=== PATIENT | female | born 1985 | race Caucasian/White ===

== ENCOUNTER 2017-01-10 16:46 | Observation (INO) | payer OTHER ==
[2017-01-10 17:35] LABS: Collection Type CLEAN CATCH
[2017-01-10 17:36] LABS: Bacteria MANY /HPF (NEGATIVE); Bilirubin NEGATIVE (NEGATIVE); Blood 50 Ery/ul (0-5); COMPLETE URINE MICROSCOPIC? YES; Epithelial Cells MANY /HPF (FEW); Glucose NEGATIVE (NEGATIVE); Leukocyte Esterase 2+ (NEGATIVE); Mucus MODERATE /HPF (NEGATIVE); WBC 25-50 /HPF (0-5)
[2017-01-10 17:54] VITALS: PULSE 101
[2017-01-10 17:55] VITALS: BP 118/68
== END 2017-01-10 18:40 | disposition home or self-care (01) ==
LOC: OB 16:46
PROVIDERS: ADMIT Family Medicine; ATTEND Family Medicine
DX: Z34.83 Encounter for supervision of other normal pregnancy, third trimester (principal)
CPT/HCPCS: 80307; 81000; 82962; G0378

== ENCOUNTER 2017-01-12 15:04 | Observation (INO) | payer OTHER ==
[2017-01-12 17:40] LABS: Collection Type CLEAN CATCH
[2017-01-12 17:41] LABS: Bacteria MANY /HPF (NEGATIVE); Bilirubin NEGATIVE (NEGATIVE); Blood 250 Ery/ul (0-5); COMPLETE URINE MICROSCOPIC? YES; Epithelial Cells MANY /HPF (FEW); Glucose NEGATIVE (NEGATIVE); Leukocyte Esterase 2+ (NEGATIVE); Mucus MANY /HPF (NEGATIVE); WBC 25-50 /HPF (0-5)
[2017-01-12 17:44] LABS: BASOPHIL % 0.1 % (0.0-0.4); Eosinophil % 0.3 % (0.00-5.0); Granulocytes % 83.6 % (36.0-66.0); Lymphocytes % 10.8 % (24.0-44.0); Mean Cell Volume 90.6 fl (78-100); Mean Platelet Volume 9.6 fl (6-9.5); Monocytes % 5.2 % (0.0-12.0); Platelet Count 308 K/mm3 (150-450); Red Blood Count 3.93 M/mm3 (4.1-5.4); Red Cell Distribution Width 14.5 % (11.5-14.0); White Blood Count 13.4 K/mm3 (4.0-10.5)
[2017-01-12 18:10] LABS: ALBUMIN 2.3 g/dL (3.4-5.0); ALKALINE PHOSPHATASE 110 U/L (46-116); ANION GAP 14.9 MEQ/L (5-15); BLOOD UREA NITROGEN 6 mg/dL (9-20); CHLORIDE 103 mEq/L (98-107); Carbon Dioxide 23.5 mEq/L (21-32); Glucose 80 MG/DL (70-110); Potassium 3.9 mEq/L (3.5-5.1); SGOT/AST 14 U/L (15-37); SGPT/ALT 15 U/L (12-78); SODIUM 138 mEq/L (136-145)
[2017-01-12] MEDS ORDERED: ROCEPHIN 1 Gm-D5w 50 ml Bag** 1 G/50 ML IVPB IV ONE (21:27)
[2017-01-12] MEDS: Lactated Ringers 1,000 ML IV SCH (21:37)
[2017-01-12 22:56] VITALS: O2SAT 97
[2017-01-13] MEDS: Lactated Ringers 1,000 ML IV SCH (04:31)
[2017-01-13 05:24] VITALS: PULSE 91
--- NOTE | 2017-01-13 08:34 | PCM.SSS ---
History of Present Illness - Chief Complaint Chief Complaint: OB CHECK History of Present Illness: is a 31 year old female at 38 wks EGA here c/o nausea, diarrhea and feeling poorly. she has had no vomiting, stools have slowed and are more solid now. denies abdominal pain, no LOF, no vaginal bleeding. - Review of Systems Constitutional: No Fever, No Chills Respiratory: No Cough, No Short Of Breath Cardiac: No Chest Pain, No Edema, No Syncope Abdominal/Gastrointestinal: Nausea, Diarrhea, No Abdominal Pain, No Vomiting Genitourinary Symptoms: No Dysuria Skin: No Rash All Other Systems: Reviewed and Negative Medications & Allergies Home Medications: Home Medication List Vits W-Ca,Fe,FA(<1Mg) [] 1 tab PO HS 07/04/14 [History Confirmed 01/12/17] Allergies/Adverse Reactions: Allergies Allergy/AdvReac Type Severity Reaction Status Date / Time No Known Drug Allergies Allergy Verified 11/30/14 03:18 - Past Medical History Past Medical History: No Comment: pt states that she has been monitoring blood sugar throughout her , highest it has been is <120 - Female History Expected Date of Delivery: 01/22/17 - Past Surgical History Past Surgical History: Yes Neuro Surgical History: No Pertinent History Cardiac History: No Pertinent History Respiratory Surgery: No Pertinent History GI Surgical History: Cholecystectomy Genitourinary Surgical Hx: No Pertinent History Musculskeletal Surgical Hx: No Pertinent History Female Surgical History: No Pertinent History Other Surgical History: T/A CYST-MOUTH AND HAND, - Social History Smoking Status: Never smoker Exposure to second hand smoke: No Alcohol: Occasionally Drug Use: none - Physical Exam Vital Signs: Vital Signs - 24 hr Temp Pulse Resp BP BP Pulse Ox 01/13/17 04:00 98.3 F 91 H 16 116/68 97 01/13/17 00:00 98.4 F 88 18 117/64 97 01/12/17 19:27 98.0 F 95 H 16 109/56 97 01/12/17 15:33 98.0 F 114 H 18 114/57 01/12/17 15:27 98.0 F 114 H 18 114/57 General Appearance: no apparent distress, obese Neurologic Exam: alert, oriented x 3 Respiratory Exam: normal breath sounds, lungs clear, No respiratory distress Cardiovascular Exam: regular rate/rhythm, normal heart sounds, normal peripheral pulses Gastrointestinal/Abdomen Exam: soft, normal bowel sounds, No tenderness, No mass Extremity Exam: normal inspection, normal range of motion, pelvis stable Skin Exam: normal color, warm, dry, No rash Results - Labs Lab/Micro Results: Lab Results-Last 24 Hours 01/12/17 01/12/17 01/12/17 Range/Units 16:31 17:40 17:40 WBC 13.4 H (4.0-10.5) K/mm3 RBC 3.93 L (4.1-5.4) M/mm3 Hgb 11.4 L (12.0-16.0) gm/dl Hct 35.6 (35-47) % MCV 90.6 (78-100) fl MCH 29.0 (26-32) pg MCHC 32.0 (32-36) g/dl RDW 14.5 H (11.5-14.0) % Plt Count 308 (150-450) K/mm3 MPV 9.6 H (6-9.5) fl Gran % 83.6 H (36.0-66.0) % Lymphocytes % 10.8 L (24.0-44.0) % Monocytes % 5.2 (0.0-12.0) % Eosinophils % 0.3 (0.00-5.0) % Basophils % 0.1 (0.0-0.4) % Basophils # 0.01 (0-0.4) Sodium 138 (136-145) mEq/L Potassium 3.9 (3.5-5.1) mEq/L Chloride 103 (98-107) mEq/L Carbon Dioxide 23.5 (21-32) mEq/L Anion Gap 14.9 (5-15) MEQ/L BUN 6 L (9-20) mg/dL Creatinine 0.55 (0.55-1.30) mg/dl Estimated GFR > 60 ML/MIN Glucose 80 (70-110) MG/DL Calcium 8.8 (8.5-10.1) mg/dL Total Bilirubin 0.20 (0.2-1.0) mg/dL AST 14 L (15-37) U/L ALT 15 (12-78) U/L Alkaline Phosphatase 110 (46-116) U/L Serum Total Protein 7.0 (6.4-8.2) gm/dL Albumin 2.3 L (3.4-5.0) g/dL Ur Collection Type CLEAN CATCH Urine Color YELLOW (YELLOW) Urine Appearance CLOUDY (CLEAR) Urine pH 5.0 (5-6) Ur Specific Dunn 1.020 (1.005-1.025) Urine Protein NEGATIVE (Negative) Urine Ketones NEGATIVE (NEGATIVE) Urine Blood 250 (0-5) Gil/ul Urine Nitrite NEGATIVE (NEGATIVE) Urine Bilirubin NEGATIVE (NEGATIVE) Urine Urobilinogen NORMAL (0-1) mg/dL Ur Leukocyte Esterase 2+ (NEGATIVE) Urine Microscopic RBC 15-25 (0-2) /HPF Urine Microscopic WBC 25-50 (0-5) /HPF Ur Epithelial Cells MANY (FEW) /HPF Urine Bacteria MANY (NEGATIVE) /HPF Urine Mucus MANY (NEGATIVE) /HPF Urine Glucose NEGATIVE (NEGATIVE) mg/dL Stl C. diff Tox B Gene (NEGATIVE) C.difficile 027-NAP1-B1 (NEGATIVE) Specimen Received 01/12/17 1715 01/12/17 Range/Units 22:37 WBC (4.0-10.5) K/mm3 RBC (4.1-5.4) M/mm3 Hgb (12.0-16.0) gm/dl Hct (35-47) % MCV (78-100) fl MCH (26-32) pg MCHC (32-36) g/dl RDW (11.5-14.0) % Plt Count (150-450) K/mm3 MPV (6-9.5) fl Gran % (36.0-66.0) % Lymphocytes % (24.0-44.0) % Monocytes % (0.0-12.0) % Eosinophils % (0.00-5.0) % Basophils % (0.0-0.4) % Basophils # (0-0.4) Sodium (136-145) mEq/L Potassium (3.5-5.1) mEq/L Chloride (98-107) mEq/L Carbon Dioxide (21-32) mEq/L Anion Gap (5-15) MEQ/L BUN (9-20) mg/dL Creatinine (0.55-1.30) mg/dl Estimated GFR ML/MIN Glucose (70-110) MG/DL Calcium (8.5-10.1) mg/dL Total Bilirubin (0.2-1.0) mg/dL AST (15-37) U/L ALT (12-78) U/L Alkaline Phosphatase (46-116) U/L Serum Total Protein (6.4-8.2) gm/dL Albumin (3.4-5.0) g/dL Ur Collection Type Urine Color (YELLOW) Urine Appearance (CLEAR) Urine pH (5-6) Ur Specific Dunn (1.005-1.025) Urine Protein (Negative) Urine Ketones (NEGATIVE) Urine Blood (0-5) Gil/ul Urine Nitrite (NEGATIVE) Urine Bilirubin (NEGATIVE) Urine Urobilinogen (0-1) mg/dL Ur Leukocyte Esterase (NEGATIVE) Urine Microscopic RBC (0-2) /HPF Urine Microscopic WBC (0-5) /HPF Ur Epithelial Cells (FEW) /HPF Urine Bacteria (NEGATIVE) /HPF Urine Mucus (NEGATIVE) /HPF Urine Glucose (NEGATIVE) mg/dL Stl C. diff Tox B Gene NEGATIVE (NEGATIVE) C.difficile 027-NAP1-B1 PRESUMPTIVE NEGATIVE (NEGATIVE) Specimen Received Assessment/Plan (1) Diarrhea Current Visit: No Status: Acute Assessment & Plan: discussed likely viral gastroenteritis, c diff was negative, and tolerating po intake. advised push fluids, bland diet and f/u tomorrow in office as scheduled. Code(s): R19.7 - DIARRHEA, UNSPECIFIED (2) Nausea Current Visit: Yes Status: Acute Code(s): R11.0 - NAUSEA (3) Current Visit: Yes Status: Acute Code(s): Z34.90 - ENCNTR FOR SUPRVSN OF NORMAL , UNSP, UNSP TRIMESTER (4) Morbid obesity Current Visit: No Status: Acute Code(s): E66.01 - MORBID (SEVERE) OBESITY DUE TO EXCESS CALORIES Hospital Summary - Vitals & Intake/Output Vital Signs: Vital Signs Temperature 98.3 F 01/13/17 04:00 Pulse Rate 91 H 01/13/17 04:00 Respiratory Rate 16 01/13/17 04:00 Blood Pressure 116/68 01/13/17 04:00 O2 Sat by Pulse Oximetry 97 01/13/17 04:00 Intake & Output: Intake & Output 01/10/17 01/11/17 01/12/17 01/13/17 11:59 11:59 11:59 11:59 Intake Total 1050 Balance 1050 Weight 152.861 kg - Lab Result Diagrams: 01/12/17 17:40 01/12/17 17:40 Lab Results-Last 24 Hrs: Lab Results-Last 24 Hours 01/12/17 01/12/17 01/12/17 Range/Units 16:31 17:40 17:40 WBC 13.4 H (4.0-10.5) K/mm3 RBC 3.93 L (4.1-5.4) M/mm3 Hgb 11.4 L (12.0-16.0) gm/dl Hct 35.6 (35-47) % MCV 90.6 (78-100) fl MCH 29.0 (26-32) pg MCHC 32.0 (32-36) g/dl RDW 14.5 H (11.5-14.0) % Plt Count 308 (150-450) K/mm3 MPV 9.6 H (6-9.5) fl Gran % 83.6 H (36.0-66.0) % Lymphocytes % 10.8 L (24.0-44.0) % Monocytes % 5.2 (0.0-12.0) % Eosinophils % 0.3 (0.00-5.0) % Basophils % 0.1 (0.0-0.4) % Basophils # 0.01 (0-0.4) Sodium 138 (136-145) mEq/L Potassium 3.9 (3.5-5.1) mEq/L Chloride 103 (98-107) mEq/L Carbon Dioxide 23.5 (21-32) mEq/L Anion Gap 14.9 (5-15) MEQ/L BUN 6 L (9-20) mg/dL Creatinine 0.55 (0.55-1.30) mg/dl Estimated GFR > 60 ML/MIN Glucose 80 (70-110) MG/DL Calcium 8.8 (8.5-10.1) mg/dL Total Bilirubin 0.20 (0.2-1.0) mg/dL AST 14 L (15-37) U/L ALT 15 (12-78) U/L Alkaline Phosphatase 110 (46-116) U/L Serum Total Protein 7.0 (6.4-8.2) gm/dL Albumin 2.3 L (3.4-5.0) g/dL Ur Collection Type CLEAN CATCH Urine Color YELLOW (YELLOW) Urine Appearance CLOUDY (CLEAR) Urine pH 5.0 (5-6) Ur Specific Dunn 1.020 (1.005-1.025) Urine Protein NEGATIVE (Negative) Urine Ketones NEGATIVE (NEGATIVE) Urine Blood 250 (0-5) Gil/ul Urine Nitrite NEGATIVE (NEGATIVE) Urine Bilirubin NEGATIVE (NEGATIVE) Urine Urobilinogen NORMAL (0-1) mg/dL Ur Leukocyte Esterase 2+ (NEGATIVE) Urine Microscopic RBC 15-25 (0-2) /HPF Urine Microscopic WBC 25-50 (0-5) /HPF Ur Epithelial Cells MANY (FEW) /HPF Urine Bacteria MANY (NEGATIVE) /HPF Urine Mucus MANY (NEGATIVE) /HPF Urine Glucose NEGATIVE (NEGATIVE) mg/dL Stl C. diff Tox B Gene (NEGATIVE) C.difficile 027-NAP1-B1 (NEGATIVE) Specimen Received 01/12/17 1715 01/12/17 Range/Units 22:37 WBC (4.0-10.5) K/mm3 RBC (4.1-5.4) M/mm3 Hgb (12.0-16.0) gm/dl Hct (35-47) % MCV (78-100) fl MCH (26-32) pg MCHC (32-36) g/dl RDW (11.5-14.0) % Plt Count (150-450) K/mm3 MPV (6-9.5) fl Gran % (36.0-66.0) % Lymphocytes % (24.0-44.0) % Monocytes % (0.0-12.0) % Eosinophils % (0.00-5.0) % Basophils % (0.0-0.4) % Basophils # (0-0.4) Sodium (136-145) mEq/L Potassium (3.5-5.1) mEq/L Chloride (98-107) mEq/L Carbon Dioxide (21-32) mEq/L Anion Gap (5-15) MEQ/L BUN (9-20) mg/dL Creatinine (0.55-1.30) mg/dl Estimated GFR ML/MIN Glucose (70-110) MG/DL Calcium (8.5-10.1) mg/dL Total Bilirubin (0.2-1.0) mg/dL AST (15-37) U/L ALT (12-78) U/L Alkaline Phosphatase (46-116) U/L Serum Total Protein (6.4-8.2) gm/dL Albumin (3.4-5.0) g/dL Ur Collection Type Urine Color (YELLOW) Urine Appearance (CLEAR) Urine pH (5-6) Ur Specific Dunn (1.005-1.025) Urine Protein (Negative) Urine Ketones (NEGATIVE) Urine Blood (0-5) Gil/ul Urine Nitrite (NEGATIVE) Urine Bilirubin (NEGATIVE) Urine Urobilinogen (0-1) mg/dL Ur Leukocyte Esterase (NEGATIVE) Urine Microscopic RBC (0-2) /HPF Urine Microscopic WBC (0-5) /HPF Ur Epithelial Cells (FEW) /HPF Urine Bacteria (NEGATIVE) /HPF Urine Mucus (NEGATIVE) /HPF Urine Glucose (NEGATIVE) mg/dL Stl C. diff Tox B Gene NEGATIVE (NEGATIVE) C.difficile 027-NAP1-B1 PRESUMPTIVE NEGATIVE (NEGATIVE) Specimen Received - Discharge Disposition: Home, Self-Care Condition: Stable Prescriptions: No Action Vits W-Ca,Fe,FA(<1Mg) [] 1 tab PO HS
[2017-01-13 08:39] VITALS: BP 116/73
[2017-01-13] MEDS ORDERED: ROCEPHIN 1 Gm-D5w 50 ml Bag** 1 G/50 ML IVPB IV SCH ×2 (10:00→22:00)
== END 2017-01-13 09:00 | disposition home or self-care (01) ==
LOC: MED SURG 15:04
PROVIDERS: ADMIT Family Medicine; ATTEND Family Medicine
DX: Z34.83 Encounter for supervision of other normal pregnancy, third trimester (principal); R19.7 Diarrhea, unspecified; R11.0 Nausea; E66.01 Morbid (severe) obesity due to excess calories
CPT/HCPCS: 36415; 80053; 81000; 85025; 87086; 87493; G0378; J0696

== ENCOUNTER 2017-01-16 01:21 | Observation (INO) | payer OTHER ==
[2017-01-16 02:18] LABS: Bacteria FEW /HPF (NEGATIVE); Bilirubin NEGATIVE (NEGATIVE); Blood 250 Ery/ul (0-5); COMPLETE URINE MICROSCOPIC? YES; Collection Type CLEAN CATCH; Epithelial Cells FEW /HPF (FEW); Glucose NEGATIVE (NEGATIVE); Leukocyte Esterase 1+ (NEGATIVE)
[2017-01-16] MEDS ORDERED: Zofran 4 MG/2 ML VIAL ONE (03:15)
[2017-01-16] MEDS ORDERED: Zofran 4 MG/2 ML VIAL IV PRN (03:36)
[2017-01-16 08:24] VITALS: BP 127/68; PULSE 82
== END 2017-01-16 08:25 | disposition home or self-care (01) ==
LOC: OB 01:21 → MED SURG 01:40 → OB 03:20
PROVIDERS: ADMIT Family Medicine; ATTEND Family Medicine
DX: Z34.83 Encounter for supervision of other normal pregnancy, third trimester (principal)
CPT/HCPCS: 80307; 81000; G0378; J2405

== ENCOUNTER 2017-01-24 08:13 | Inpatient (IN) | payer OTHER ==
[2017-01-24] MEDS ORDERED: Cervidil 10 MG VAG SCH (18:00)
[2017-01-24] MEDS ORDERED: BRETHINE 1 MG/ML SQ PRN (18:00)
[2017-01-24 19:01] LABS: BASOPHIL % 0.1 % (0.0-0.4); Eosinophil % 0.2 % (0.00-5.0); Lymphocytes % 14.3 % (24.0-44.0); Mean Cell Volume 89.9 fl (78-100); Mean Corpuscular Hemoglobin 28.6 pg (26-32); Monocytes % 7.4 % (0.0-12.0); Platelet Count 347 K/mm3 (150-450); Red Blood Count 3.98 M/mm3 (4.1-5.4); Red Cell Distribution Width 14.9 % (11.5-14.0); White Blood Count 12.9 K/mm3 (4.0-10.5)
[2017-01-25] MEDS ORDERED: XYLOCAINE 1% HCL 20 ML MDV IJ PRN (06:00)
[2017-01-25] MEDS ORDERED: PITOCIN 30 UNITS/ LR 500 ML 500 ML IV SCH (06:00)
[2017-01-25] MEDS: Lactated Ringers 1,000 ML IV SCH ×2 (06:09→20:54)
[2017-01-25] MEDS ORDERED: OB EPIDURAL NAROPIN/SUFENTANIL IN NACL EPIDURAL PRN (11:47)
[2017-01-25] MEDS ORDERED: Lactated Ringers 1,000 ML IV ONE (11:47)
[2017-01-25] MEDS ORDERED: Ephedrine Sulfate 50 MG/ML IV PRN (11:47)
[2017-01-25] MEDS ORDERED: Marcaine MPF 0.25% 30 ML EPIDURAL ONE (15:33)
[2017-01-25] MEDS ORDERED: Marcaine Spinal Ampul IJ ONE (16:16)
[2017-01-25] MEDS ORDERED: CORTISONE 1% CREAM TP PRN (18:51)
[2017-01-25] MEDS ORDERED: Anucort-HC SUPPOSITORY PR PRN (18:51)
[2017-01-25] MEDS ORDERED: Mylicon 80MG PO PRN (18:51)
[2017-01-25] MEDS ORDERED: Dermoplast Spray TP PRN (18:51)
[2017-01-25] MEDS ORDERED: Dulcolax 10 MG SUPP PR PRN (18:51)
[2017-01-25] MEDS ORDERED: Ambien 10 MG PO PRN (18:51)
[2017-01-25] MEDS ORDERED: LANSINOH 40 GM TOP PRN (18:51)
[2017-01-25] MEDS ORDERED: NORCO 5/325 MG PO PRN (18:51)
[2017-01-25] MEDS ORDERED: TUCKS TP PRN (18:51)
[2017-01-25] MEDS: MOTRIN 400 MG PO PRN (20:53)
[2017-01-25] MEDS: Colace 100 MG PO SCH ×2 (20:53→21:10)
[2017-01-26] MEDS: MOTRIN 400 MG PO PRN ×3 (02:50→18:26)
[2017-01-26 05:42] LABS: BASOPHIL % 0.1 % (0.0-0.4); Eosinophil % 0.1 % (0.00-5.0); Granulocytes % 78.5 % (36.0-66.0); Mean Cell Volume 91.4 fl (78-100); Mean Platelet Volume 9.9 fl (6-9.5); Monocytes % 7.3 % (0.0-12.0); Platelet Count 302 K/mm3 (150-450); Red Blood Count 3.36 M/mm3 (4.1-5.4); Red Cell Distribution Width 14.7 % (11.5-14.0); White Blood Count 17.5 K/mm3 (4.0-10.5)
[2017-01-26 05:46] LABS: Mean Corpuscular Hemoglobin 29.1 pg (26-32)
[2017-01-26] MEDS: FERREX 150 PO SCH (09:14)
[2017-01-26] MEDS: Colace 100 MG PO SCH (09:14)
[2017-01-26] MEDS: TYLENOL EXTRA STRENGTH 500 MG PO PRN ×2 (14:10→21:40)
[2017-01-26 20:00] VITALS: O2SAT 99
[2017-01-27] MEDS: MOTRIN 400 MG PO PRN ×2 (04:59→10:41)
--- NOTE | 2017-01-27 08:06 | PCM.DS ---
Discharge Summary Date of Admission: 01/25/17 08:13 Admitting Physician: ANANT FUNES Consults: Consults on Case 01/25/17 18:51 Notify Physician ROUTINE Primary Care Provider: ANANT FUNES Allergies Allergies No Known Drug Allergies Allergy (Verified 01/16/17 02:16) Hospital Summary - Hospital Course Hospital Course: patient is 31yo who was admitted for elective of induction at 39 wks. had with no complications on 01/25. bottle feeding and doing well. - Vitals & Intake/Output Vital Signs: Vital Signs Temperature 98.4 F 01/27/17 01:00 Pulse Rate 84 01/27/17 01:00 Respiratory Rate 18 01/27/17 01:00 Blood Pressure 139/70 01/27/17 01:00 O2 Sat by Pulse Oximetry 99 01/26/17 19:46 Intake & Output: Intake & Output 01/24/17 01/25/17 01/26/17 01/27/17 11:59 11:59 11:59 11:59 Intake Total 1800 700 900 Output Total 900 Balance 1800 -200 900 Weight 151.5 kg - Lab Result Diagrams: 01/26/17 05:20 Discharge Exam General Appearance: no apparent distress, alert, obese Neurologic Exam: alert, oriented x 3, cooperative, normal mood/affect, nml cerebellar function, sensation nml, No motor deficits Skin Exam: normal color, warm, dry Eye Exam: PERRL, EOMI, eyes nml inspection Respiratory Exam: normal breath sounds, lungs clear, No respiratory distress Cardiovascular Exam: regular rate/rhythm, normal heart sounds Gastrointestinal/Abdomen Exam: soft, No tenderness, No mass Extremity Exam: normal inspection, normal range of motion Final Diagnosis/Problem List - Final Discharge Diagnosis/Problem (1) Vaginal delivery Current Visit: No Status: Acute Assessment & Plan: doing well, discharge at 48 hrs with female (2) Morbid obesity Current Visit: No Status: Acute - Discharge Disposition: Home, Self-Care Condition: Stable Prescriptions: No Action Vits W-Ca,Fe,FA(<1Mg) [] 1 tab PO HS Follow up with: ANANT FUNES MD [Primary Care Provider] - 1 Week
[2017-01-27] MEDS: FERREX 150 PO SCH (10:41)
[2017-01-27] MEDS: Colace 100 MG PO SCH (10:42)
[2017-01-27] MEDS: TYLENOL EXTRA STRENGTH 500 MG PO PRN (14:00)
[2017-01-27 15:55] VITALS: BP 128/79; PULSE 77
== END 2017-01-27 18:55 | disposition home or self-care (01) | DRG 775 ==
LOC: OB 08:13 → UNDOADMOB 16:53 → OBSVTOIN 01-25 08:13
PROVIDERS: ADMIT Family Medicine; ATTEND Family Medicine
PROC: 10E0XZZ Delivery of Products of Conception, External Approach (ICD-10-PCS; principal; 2017-01-25)
DX: O80 Encounter for full-term uncomplicated delivery (principal); Z3A.40 40 weeks gestation of pregnancy; Z37.0 Single live birth
CPT/HCPCS: 01967; 36415; 80307; 85025; G0378; J2590; A9270-GY